=== PATIENT | male | born 1990 | race Caucasian/White ===

== ENCOUNTER 2018-11-09 20:43 | Emergency (ER) | payer SELFPAY ==
[~2018-11-09] VITALS: Ht 170.2 cm; Wt 67.0 kg
[2018-11-09 20:45] VITALS: BP 138/75; PULSE 99; RESP 20; Ht 170.2 cm; Wt 67.0 kg
== END 2018-11-09 21:50 | disposition left against medical advice (07) ==
LOC: E/R 20:43
DX: Z53.21 Procedure and treatment not carried out due to patient leaving prior to being seen by health care provider (principal)